=== PATIENT | female | born 1995 | race Caucasian/White ===

== ENCOUNTER 2018-09-23 21:53 | Emergency (ER) | payer OTHER ==
[2018-09-23 22:22] VITALS: BP 101/59
--- NOTE | 2018-09-23 22:27 | Emergency Department Report ---
Blank Doc - Documentation Documentation: 23 y/o female that is 10 weeks preg. . C/o vaginal bleeding and abd cramp ing. No PMH. No hx/o complications in her prior .
[2018-09-23 23:35] LABS: Alanine Aminotransferase 10 units/L (7-56); Albumin 4.6 g/dL (3.9-5); BUN/Creatinine Ratio 25; Blood Urea Nitrogen 10 mg/dL (7-17); Calcium 9.6 mg/dL (8.4-10.2); Hemolysis Index 2
[2018-09-23 23:57] LABS: Hematocrit 36.9 % (30.3-42.9); Mean Corpuscular Volume 94 fl (79-97); Red Blood Count 3.93 M/mm3 (3.65-5.03)
[2018-09-23 23:58] LABS: Basophils % (Auto) 0.5 % (0.0-1.8); Eosinophils % (Auto) 0.8 % (0.0-4.3); Lymphocytes % (Auto) 28.4 % (13.4-35.0); Mean Corpuscular HGB Conc 35 % (30-34); Monocytes % (Auto) 4.7 % (0.0-7.3); Platelet Count 248 K/mm3 (140-440); Red Cell Distribution Width 12.8 % (13.2-15.2)
[2018-09-23 23:59] LABS: Eosinophils # (Auto) 0.1 K/mm3 (0.0-0.4); Lymphocytes # (Auto) 2.4 K/mm3 (1.2-5.4); Monocytes # (Auto) 0.4 K/mm3 (0.0-0.8)
[2018-09-24 00:04] LABS: Bacteria,Urine 1+ /HPF (Negative); Bilirubin,Urine NEG (Negative); Blood,Urine LG (Negative); Color,Urine Red (Yellow); Mucus,Urine 2+ /HPF; Urobilinogen,Urine < 2.0 mg/dL (<2.0)
[2018-09-24 00:05] LABS: RBC,Urine > 182.0 /HPF (0.0-6.0)
--- NOTE | 2018-09-24 00:58 | Emergency Department Report ---
ED HPI - General Chief complaint: Vaginal Bleeding Stated complaint: VAGINAL BLEEDING, 10 WKS Time Seen by Provider: 09/24/18 00:41 Source: patient, family Mode of arrival: Ambulatory Limitations: Language Barrier - History of Present Illness Initial comments: 23 y/o female that is 10 weeks preg. . C/o vaginal bleeding and abd egg crater mping. No PMH. No hx/o complications in her prior . MD Complaint: vaginal bleeding Onset/Timin -: days(s) Location: pelvis Radiation: none Severity: moderate Severity scale (0 -10): 4 Quality: cramping Consistency: constant Improves with: none Worsens with: none Associated symptoms: vaginal bleeding Vaginal bleeding: light :: Yes Number of weeks : 10 OB History - Current : no complications OB History - Previous Pregnancies: no complications Last menstrual period: 07/09/18 Pre-andrew care: followed by OB - Related Data : 2 Para: 1 Ab: 0 Previous Rx's Medication Instructions Recorded Last Taken Type Acetaminophen [Acetaminophen TAB] 1,000 mg PO Q6HR PRN #30 tablet 09/24/18 Unknown Rx Allergies Allergy/AdvReac Type Severity Reaction Status Date / Time No Known Allergies Allergy Verified 09/23/18 21:57 ED Review of Systems ROS: Stated complaint: VAGINAL BLEEDING, 10 WKS Other details as noted in HPI Constitutional: denies: chills, fever Eyes: denies: eye pain, eye discharge, vision change ENT: denies: ear pain, throat pain Respiratory: denies: cough, shortness of breath, wheezing Cardiovascular: denies: chest pain, palpitations Endocrine: no symptoms reported Gastrointestinal: abdominal pain. denies: nausea, vomiting, diarrhea Genitourinary: denies: urgency, dysuria, discharge Musculoskeletal: denies: back pain, joint swelling, arthralgia Skin: denies: rash, lesions Neurological: denies: headache, weakness, paresthesias Psychiatric: denies: anxiety, depression Hematological/Lymphatic: denies: easy bleeding, easy bruising ED Past Medical Hx - Past Medical History Previous Medical History?: No - Surgical History Past Surgical History?: No - Social History Smoking Status: Never Smoker Substance Use Type: None - Medications Home Medications: Home Medications Medication Instructions Recorded Confirmed Last Taken Type Acetaminophen [Acetaminophen TAB] 1,000 mg PO Q6HR PRN #30 tablet 09/24/18 U nknown Rx ED Physical Exam - General Limitations: Language Barrier General appearance: alert, in no apparent distress - Head Head exam: Present: atraumatic, normocephalic - Eye Eye exam: Present: normal appearance, PERRL, EOMI - ENT ENT exam: Present: mucous membranes moist - Neck Neck exam: Present: normal inspection, full ROM - Respiratory Respiratory exam: Present: normal lung sounds bilaterally. Absent: respiratory distress, wheezes, stridor, chest wall tenderness - Cardiovascular Cardiovascular Exam: Present: regular rate, normal rhythm, normal heart sounds. Absent: systolic murmur, diastolic murmur, rubs, gallop - GI/Abdominal GI/Abdominal exam: Present: soft, normal bowel sounds. Absent: distended, tenderness, guarding, rebound, rigid, bruit, hernia - Rectal Rectal exam: Present: deferred - External exam: Present: other (deferred to OBGYN per patient.) - Extremities Exam Extremities exam: Present: normal inspection, full ROM, normal capillary refill. Absent: tenderness - Back Exam Back exam: Present: normal inspection, full ROM. Absent: tenderness, CVA tenderness (R), CVA tenderness (L), rash noted - Neurological Exam Neurological exam: Present: alert, oriented X3, CN II-XII intact, normal gait - Psychiatric Psychiatric exam: Present: normal affect, normal mood - Skin Skin exam: Present: warm, dry, intact, normal color. Absent: rash ED Course Vital Signs 09/23/18 09/23/18 22:11 22:23 Temperature 98.1 F 98.1 F Pulse Rate 85 83 Respiratory 16 16 Rate Blood Pressure 101/59 101/59 O2 Sat by Pulse 99 99 Oximetry ED Medical Decision Making - Lab Data Result diagrams: 09/23/18 22:53 09/23/18 22:53 Labs 09/23/18 09/23/18 09/23/18 22:53 22:53 22:53 WBC 8.6 RBC 3.93 Hgb 13.0 Hct 36.9 MCV 94 MCH 33 H MCHC 35 H RDW 12.8 L Plt Count 248 Lymph % (Auto) 28.4 [place] % (Auto) 4.7 Eos % (Auto) 0.8 Baso % (Auto) 0.5 Lymph # 2.4 [place] # 0.4 Eos # 0.1 Baso # 0.0 Seg Neutrophils % 65.5 Seg Neutrophils # 5.6 Sodium 136 L Potassium 4.0 Chloride 102.0 Carbon Dioxide 22 Anion Gap 16 BUN 10 Creatinine 0.4 L Estimated GFR > 60 BUN/Creatinine Ratio 25 Glucose 87 Calcium 9.6 Total Bilirubin 0.30 AST 15 ALT 10 Alkaline Phosphatase 64 Total Protein 8.0 Albumin 4.6 Albumin/Globulin Ratio 1.4 HCG, Quant 3111 H Urine Color Urine Turbidity Urine pH Ur Specific [place] Urine Protein Urine Glucose (UA) Urine Ketones Urine Blood Urine Nitrite Urine Bilirubin Urine Urobilinogen Ur Leukocyte Esterase Urine WBC (Auto) Urine RBC (Auto) U Epithel Cells (Auto) Urine Bacteria (Auto) Urine Mucus Blood Type Ord Rhog Gest09/23/18 09/23/18 09/24/18 22:53 23:25 01:00 WBC RBC Hgb Hct MCV MCH MCHC RDW Plt Count Lymph % (Auto) [place] % (Auto) Eos % (Auto) Baso % (Auto) Lymph # [place] # Eos # Baso # Seg Neutrophils % Seg Neutrophils # Sodium Potassium Chloride Carbon Dioxide Anion Gap BUN Creatinine Estimated GFR BUN/Creatinine Ratio Glucose Calcium Total Bilirubin AST ALT Alkaline Phosphatase Total Protein Albumin Albumin/Globulin Ratio HCG, Quant Urine Color Red Urine Turbidity Cloudy Urine pH 6.0 Ur Specific [place] 1.034 H Urine Protein 100 mg/dl Urine Glucose (UA) 50 Urine Ketones Tr Urine Blood Lg Urine Nitrite Neg Urine Bilirubin Neg Urine Urobilinogen < 2.0 Ur Leukocyte Esterase Neg Urine WBC (Auto) 17.0 H Urine RBC (Auto) > 182.0 U Epithel Cells (Auto) 8.0 Urine Bacteria (Auto) 1+ Urine Mucus 2+ Blood Type O POSITIVE O POSITIVE Ord Rhog Gestat pos - Radiology Data Radiology results: report reviewed, image reviewed [facility] [address] [place] [address] Ultrasound Report Signed Patient: CURTIS JONES MR#: [id number] : 1995 Acct:[id number] Age/Sex: 23 / F ADM Date: 09/23/18 Loc: ED Attending Dr: Ordering Physician: RENA LOPEZ Date of Service: 09/23/18 Procedure(s): US OB transvaginal Accession Number(s): [id number] cc: RENA LOPEZ PROCEDURE: US OB TRANSVAGINAL TECHNIQUE: OB ultrasound obtained. HISTORY: 10 wks preg with vag bleeding COMPARISONS: None FINDINGS: Uterus measures 8.9 x 5.0 x 6.2 cm. Single IUP visualized with crown-rump length of 18 mm corresponding gestational age of 8 weeks and 2 days. No heart rate detected. These findings are worrisome for demise. Right ovary measures 2.5 x 1.2 x 2.4 cm. Left ovary measures 2.9 x 2.5 x 2.87 m. Color signal seen in both ovaries. IMPRESSION: Single IUP visualized with crown-rump length of 18 mm corresponding gestational age of 8 weeks and 2 days. No heart rate detected. These findings are worrisome for demise.. 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 This document is electronically signed by Ilda Jeong MD., September 24 2018 01:38:46 AM ET Transcribed By: QF Dictated By: ILDA JEONG Electronically Authenticated By: ILDA JEONG Signed Date/Time: 09/24/18 014 DD/ 1 TD/TT: 09/24/18132 - Medical Decision Making us: Single IUP, 8 weeks, no hr, ? demise, plan follow up with OBGYN tomorrow , ua: pos for wbc, abo: Opositive not candidate for rhogam, will rx abx for urine, pt verbalized agreement and understanding of discharge plan. Critical care attestation.: If time is entered above; I have spent that time in minutes in the direct care of this critically ill patient, excluding procedure time. ED Disposition Clinical Impression: Threatened miscarriage Disposition: DC-01 TO HOME OR SELFCARE Is pt being admited?: No Does the pt Need Aspirin: No Condition: Stable Instructions: Threatened Miscarriage (ED) Prescriptions: Acetaminophen [Acetaminophen TAB] 1,000 mg PO Q6HR PRN #30 tablet PRN Reason: pain Referrals: [facility] [Provider Group] - 24 Hours Forms: Work/School Release Form(ED) Time of Disposition: 03:29 Print Language: CROATIAN
--- NOTE | 2018-09-24 01:40 | Ultrasound Report ---
PROCEDURE: US OB TRANSVAGINAL TECHNIQUE: OB ultrasound obtained. HISTORY: 10 wks preg with vag bleeding COMPARISONS: None FINDINGS: Uterus measures 8.9 x 5.0 x 6.2 cm. Single IUP visualized with crown-rump length of 18 mm correspondi ng gestational age of 8 weeks and 2 days. No heart rate detected. These findings are worrisome for demise. Right ovary measures 2.5 x 1.2 x 2.4 cm. Left ovary measures 2.9 x 2.5 x 2.87 m. Color signal seen in both ovaries. IMPRESSION: Single IUP visualized with crown-rump length of 18 mm corresponding gestational age of 8 weeks and 2 days. No heart rate detected. These findings are worrisome for demise.. 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 This document is electronically signed by Sydni Hansen MD., September 24 2018 01:38:46 AM ET
--- NOTE | 2018-09-24 01:41 | Ultrasound Report ---
PROCEDURE: US OB <= 14 WEEKS FETUS TECHNIQUE: OB ultrasound obtained. HISTORY: 10 wks preg with vag bleeding COMPARISONS: None FINDINGS: Uterus measures 8.9 x 5.0 x 6.2 cm. Single IUP visualized with crown-rump length of 18 mm correspondi ng gestational age of 8 weeks and 2 days. No heart rate detected. These findings are worrisome for demise. Right ovary measures 2.5 x 1.2 x 2.4 cm. Left ovary measures 2.9 x 2.5 x 2.87 m. Color signal seen in both ovaries. IMPRESSION: Single IUP visualized with crown-rump length of 18 mm corresponding gestational age of 8 weeks and 2 days. No heart rate detected. These findings are worrisome for demise.. 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 This document is electronically signed by Sydni Hansen MD., September 24 2018 01:39:13 AM ET
== END 2018-09-24 03:52 | disposition home or self-care (01) ==
LOC: ED 21:53 → EDBD 21:53 → ED 09-24 03:52
DX: O20.0 Threatened abortion (principal); Z3A.01 Less than 8 weeks gestation of pregnancy
CPT/HCPCS: 36415; 76801; 76817; 80053; 81001; 84702; 85025; 86900; 86901

== ENCOUNTER 2018-09-24 06:38 | Emergency (ER) | payer SELFPAY ==
[2018-09-24] MEDS ORDERED: REGLAN ONE (09:54)
[2018-09-24] MEDS ORDERED: REGLAN IV ONE (09:54)
[2018-09-24] MEDS ORDERED: ZOFRAN IV ONE (11:39)
[2018-09-24] MEDS ORDERED: MORPHINE IV ONE (11:39)
[2018-09-24] MEDS ORDERED: NACL 0.9% 1000 ML 1,000 ML IV ONE (11:39)
--- NOTE | 2018-09-24 11:39 | Emergency Department Report ---
ED General Adult HPI - General Chief complaint: Vaginal Bleeding Stated complaint: VAGINAL BLEEDING Time Seen by Provider: 09/24/18 10:32 Source: patient, family, EMS Mode of arrival: Stretcher Limitations: No Limitations - History of Present Illness Initial comments: Patient presents to the emergency department with a chief complaint of a miscarriage and vaginal bleeding. The patient was discharged earlier in the morning for threatened miscarriage and upon arriving home the patient began to have a significant amount of abdominal pain and passed a fetus. The family abraded fetus to the ED. -: Sudden Location: abdomen Severity scale (0 -10): 8 Quality: stabbing Consistency: constant Improves with: none Worsens with: none Associated Symptoms: denies other symptoms Treatments Prior to Arrival: none - Related Data Previous Rx's Medication Instructions Recorded Last Taken Type Acetaminophen [Acetaminophen TAB] 1,000 mg PO Q6HR PRN #30 tablet 09/24/18 Unknown Rx Amoxicillin/Potassium Clav 1 each PO BID #14 tablet 09/24/18 Unknown Rx [Augmentin 875-125 Tablet] HYDROcodone/APAP 5-325 [[place] 1 each PO Q6HR PRN #12 tablet 09/24/18 Unknown Rx 5/325] Ketorolac [Toradol] 10 mg PO Q6H PRN #12 tablet 09/24/18 Unknown Rx Methylergonovine [Methergine] 0.2 mg PO Q8HR #21 tablet 09/24/18 Unknown Rx Ondansetron [Zofran Odt] 4 mg PO Q4HR PRN #20 tab.rapdis 09/24/18 Unknown Rx Allergies Allergy/AdvReac Type Severity Reaction Status Date / Time No Known Allergies Allergy Verified 09/23/18 21:57 ED Review of Systems ROS: Stated complaint: VAGINAL BLEEDING Other details as noted in HPI Constitutional: denies: chills, fever Eyes: denies: eye pain, eye discharge, vision change ENT: denies: ear pain, throat pain Respiratory: denies: cough, shortness of breath, wheezing Cardiovascular: denies: chest pain, palpitations Endocrine: no symptoms reported Gastrointestinal: denies: abdominal pain, nausea, diarrhea Genitourinary: other (vaginal bleeding). denies: urgency, dysuria, discharge Musculoskeletal: denies: back pain, joint swelling, arthralgia Skin: denies: rash, lesions Neurological: denies: headache, weakness, paresthesias Psychiatric: denies: anxiety, depression Hematological/Lymphatic: denies: easy bleeding, easy bruising ED Past Medical Hx - Past Medical History Previous Medical History?: Yes Additional medical history: states 10 weeks - Social History Smoking Status: Never Smoker - Medications Home Medications: Home Medications Medication Instructions Recorded Confirmed Last Taken Type Acetaminophen [Acetaminophen TAB] 1,000 mg PO Q6HR PRN #30 tablet 09/24/18 Unknown Rx Amoxicillin/Potassium Clav 1 each PO BID #14 tablet 09/24/18 Unknown Rx [Augmentin 875-125 Tablet] HYDROcodone/APAP 5-325 [[place] 1 each PO Q6HR PRN #12 tablet 09/24/18 Unknown Rx 5/325] Ketorolac [Toradol] 10 mg PO Q6H PRN #12 tablet 09/24/18 Unknown Rx Methylergonovine [Methergine] 0.2 mg PO Q8HR #21 tablet 09/24/18 Unknown Rx Ondansetron [Zofran Odt] 4 mg PO Q4HR PRN #20 tab.rapdis 09/24/18 Unknown Rx ED Physical Exam - General Limitations: No Limitations General appearance: alert, in no apparent distress - Head Head exam: Present: atraumatic, normocephalic - Eye Eye exam: Present: normal appearance, PERRL - ENT ENT exam: Present: mucous membranes moist - Neck Neck exam: Present: normal inspection - Respiratory Respiratory exam: Present: normal lung sounds bilaterally. Absent: respiratory distress, wheezes, rales - Cardiovascular Cardiovascular Exam: Present: regular rate, normal rhythm. Absent: systolic murmur, diastolic murmur, rubs, gallop - GI/Abdominal GI/Abdominal exam: Present: soft, normal bowel sounds. Absent: distended, tenderness - Rectal Rectal exam: Present: deferred - External exam: Present: bleeding, other ( exam chaperoned by [facility]) Speculum exam: Present: tissue, other ([place] and amount of bleeding with clots in the vaginal canal; cervical os visualized and is open with tissue present on ice) - Extremities Exam Extremities exam: Present: normal inspection - Back Exam Back exam: Present: normal inspection - Neurological Exam Neurological exam: Present: alert, oriented X3, CN II-XII intact. Absent: motor sensory deficit - Psychiatric Psychiatric exam: Present: normal affect, normal mood - Skin Skin exam: Present: warm, dry, intact, normal color. Absent: rash ED Course Vital Signs 09/24/18 09/24/18 06:45 12:06 Temperature 100.7 F H Pulse Rate 100 H Respiratory 20 18 Rate Blood Pressure 124/82 O2 Sat by Pulse 98 Oximetry ED Medical Decision Making - Lab Data Result diagrams: 09/24/18 11:05 09/24/18 11:05 Lab Results 09/24/18 09/24/18 09/24/18 Range/Units 11:05 11:05 11:05 WBC 11.3 H (4.5-11.0) K/mm3 RBC 3.53 L (3.65-5.03) M/mm3 Hgb 11.5 (10.1-14.3) gm/dl Hct 33.2 (30.3-42.9) % MCV 94 (79-97) fl MCH 33 H (28-32) pg MCHC 35 H (30-34) % RDW 12.7 L (13.2-15.2) % Plt Count 232 (140-440) K/mm3 Lymph % (Auto) 11.8 L (13.4-35.0) % [place] % (Auto) 2.5 (0.0-7.3) % Eos % (Auto) 0.1 (0.0-4.3) % Baso % (Auto) 0.3 (0.0-1.8) % Lymph # 1.3 (1.2-5.4) K/mm3 [place] # 0.3 (0.0-0.8) K/mm3 Eos # 0.0 (0.0-0.4) K/mm3 Baso # 0.0 (0.0-0.1) K/mm3 Seg Neutrophils % 85.3 H (40.0-70.0) % Seg Neutrophils # 9.6 H (1.8-7.7) K/mm3 PT 13.6 (12.2-14.9) Sec. INR 0.98 (0.87-1.13) APTT 27.0 (24.2-36.6) Sec. Sodium 139 (137-145) mmol/L Potassium 4.0 (3.6-5.0) mmol/L Chloride 105.4 (98-107) mmol/L Carbon Dioxide 20 L (22-30) mmol/L Anion Gap 18 mmol/L BUN 10 (7-17) mg/dL Creatinine 0.4 L (0.7-1.2) mg/dL Estimated GFR > 60 ml/min BUN/Creatinine Ratio 25 % Glucose 108 H (65-100) mg/dL Calcium 9.0 (8.4-10.2) mg/dL Total Bilirubin 0.20 (0.1-1.2) mg/dL AST 14 (5-40) units/L ALT 10 (7-56) units/L Alkaline Phosphatase 63 (35-129) units/L Total Protein 7.1 (6.3-8.2) g/dL Albumin 4.2 (3.9-5) g/dL Albumin/Globulin Ratio 1.4 % Blood Type 09/24/18 Range/Units 11:05 WBC (4.5-11.0) K/mm3 RBC (3.65-5.03) M/mm3 Hgb (10.1-14.3) gm/dl Hct (30.3-42.9) % MCV (79-97) fl MCH (28-32) pg MCHC (30-34) % RDW (13.2-15.2) % Plt Count (140-440) K/mm3 Lymph % (Auto) (13.4-35.0) % [place] % (Auto) (0.0-7.3) % Eos % (Auto) (0.0-4.3) % Baso % (Auto) (0.0-1.8) % Lymph # (1.2-5.4) K/mm3 [place] # (0.0-0.8) K/mm3 Eos # (0.0-0.4) K/mm3 Baso # (0.0-0.1) K/mm3 Seg Neutrophils % (40.0-70.0) % Seg Neutrophils # (1.8-7.7) K/mm3 PT (12.2-14.9) Sec. INR (0.87-1.13) APTT (24.2-36.6) Sec. Sodium (137-145) mmol/L Potassium (3.6-5.0) mmol/L Chloride (98-107) mmol/L Carbon Dioxide (22-30) mmol/L Anion Gap mmol/L BUN (7-17) mg/dL Creatinine (0.7-1.2) mg/dL Estimated GFR ml/min BUN/Creatinine Ratio % Glucose (65-100) mg/dL Calcium (8.4-10.2) mg/dL Total Bilirubin (0.1-1.2) mg/dL AST (5-40) units/L ALT (7-56) units/L Alkaline Phosphatase (35-129) units/L Total Protein (6.3-8.2) g/dL Albumin (3.9-5) g/dL Albumin/Globulin Ratio % Blood Type O POSITIVE - Radiology Data Radiology results: report reviewed - Medical Decision Making Discussed findings with patient and her family Discussed plan of care with the on-call foundry helper was Dr. Marcus Patient will be given Methergine, pain medication, antibiotics with follow-up Critical care attestation.: If time is entered above; I have spent that time in minutes in the direct care of this critically ill patient, excluding procedure time. ED Disposition Clinical Impression: Incomplete miscarriage with blood clot Disposition: DC-01 TO HOME OR SELFCARE Is pt being admited?: No Does the pt Need Aspirin: No Condition: Stable Instructions: Spontaneous Miscarriage (ED) Additional Instructions: return if worse Prescriptions: Amoxicillin/Potassium Clav [Augmentin 875-125 Tablet] 1 each PO BID #14 tablet Methylergonovine [Methergine] 0.2 mg PO Q8HR #21 tablet Referrals: DION HAYDEN MD [Primary Care Provider] - 3-5 Days JUDIE MORALES MD [Staff Physician] - 3-5 Days Time of Disposition: 15:14
[2018-09-24 11:40] LABS: Basophils % (Auto) 0.3 % (0.0-1.8); Eosinophils % (Auto) 0.1 % (0.0-4.3); Hematocrit 33.2 % (30.3-42.9); Hemoglobin 11.5 gm/dl (10.1-14.3); Lymphocytes # (Auto) 1.3 K/mm3 (1.2-5.4); Lymphocytes % (Auto) 11.8 % (13.4-35.0); Mean Corpuscular HGB Conc 35 % (30-34); Mean Corpuscular Volume 94 fl (79-97); Monocytes # (Auto) 0.3 K/mm3 (0.0-0.8); Monocytes % (Auto) 2.5 % (0.0-7.3); Platelet Count 232 K/mm3 (140-440); Red Blood Count 3.53 M/mm3 (3.65-5.03); Red Cell Distribution Width 12.7 % (13.2-15.2)
[2018-09-24 11:44] LABS: INR 0.98 (0.87-1.13)
[2018-09-24 11:51] LABS: Alanine Aminotransferase 10 units/L (7-56); Albumin 4.2 g/dL (3.9-5); BUN/Creatinine Ratio 25; Blood Urea Nitrogen 10 mg/dL (7-17); Hemolysis Index 8
--- NOTE | 2018-09-24 12:08 | Ultrasound Report ---
ULTRASOUND OB LESS THAN 14 WEEKS FETUS History: Miscarriage, heavy vaginal bleeding Findings: Transabdominal ultrasound imaging was performed. The uterus is anteverted and measures 10.9 x 5.7 x 5.5 cm. No uterine mass is appreciated. The endometrium is complex and thickened measuring 2.2 cm in thickness. No intrauterine or heart rate could be detected on transabdominal imaging. The ovaries are normal size, contour and echotexture. No adnexal cyst or mass. No pelvic fluid collection. IMPRESSION: No normal intrauterine is visualized. The endometrium is complex and thickened measuring 2.2 cm. This could represent spontaneous with retained products of conception. Please correlate with the patient's clinical presentation.
[2018-09-24] MEDS ORDERED: TORADOL IVP ONE (13:54)
[2018-09-24] MEDS ORDERED: METHERGINE PO ONE (14:23)
[2018-09-24 16:26] VITALS: BP 98/55
== END 2018-09-24 16:26 | disposition home or self-care (01) ==
LOC: ED 06:38
DX: O03.2 Embolism following incomplete spontaneous abortion (principal); Z3A.10 10 weeks gestation of pregnancy
CPT/HCPCS: 36415; 76801; 80053; 85025; 85610; 85730; 86900; 86901; 88305; 96374; 96375; 99285; J2270; J2405; J2765; J7030